=== PATIENT | male | born 1940 | race Caucasian/White ===

== ENCOUNTER 2020-09-18 09:20 | Day surgery (SDC) | payer MEDICARE ==
[~2020-09-18] VITALS: Ht 175.3 cm; Wt 112.5 kg
[~2020-09-18 09:20] MED LIST: LEVOTHYROXIN125 MC1 PO; METOPROL TAR25 MG PO; WARFARIN4 MG PO
[2020-09-18 13:14] VITALS: BP 129/64
== END 2020-09-18 13:35 | disposition home or self-care (01) ==
LOC: ENDO 09:20 → ORM 10:30 → ENDO 13:35
PROVIDERS: ATTEND Surgery
PROC: 0DBM8ZX Excision of Descending Colon, Via Natural or Artificial Opening Endoscopic, Diagnostic (ICD-10-PCS; principal; 2020-09-18)
PROC: 0D748ZZ Dilation of Esophagogastric Junction, Via Natural or Artificial Opening Endoscopic (ICD-10-PCS; 2020-09-18)
DX: Z12.11 Encounter for screening for malignant neoplasm of colon (principal); D12.4 Benign neoplasm of descending colon; K57.30 Diverticulosis of large intestine without perforation or abscess without bleeding; K22.2 Esophageal obstruction; K29.70 Gastritis, unspecified, without bleeding; K44.9 Diaphragmatic hernia without obstruction or gangrene; I48.91 Unspecified atrial fibrillation; Z86.010 Personal history of colon polyps; Z20.822 Contact with and (suspected) exposure to COVID-19